=== PATIENT | female | born 1985 | race Two or more races ===

== ENCOUNTER 2024-06-20 19:15 | Emergency (ER) | payer BC, OTHER ==
[~2024-06-20] VITALS: Ht 162.6 cm; Wt 90.0 kg
[2024-06-20] MEDS: LORazepam 0.5 MG TAB PO ONE (19:38)
[2024-06-20 19:45] LABS: Basophils # (auto) 0.1 10 ^3/uL (0-0.2); Basophils % (auto) 1.2 % (0.0-2.0); Eosinophils # (auto) 0.3 10 ^3/uL (0-0.8); Eosinophils % (auto) 2.9 % (0.0-7.0); Hematocrit 37.9 % (36.0-46.0); Hemoglobin 12.9 g/dL (12.2-16.2); Lymphocytes # (auto) 2.7 10 ^3/uL (0.4-5.4); Lymphocytes % (auto) 29.4 % (10.0-50.0); Mean Corpuscular Hgb Conc. 33.9 g/dL (32.0-36.0); Mean Corpuscular Volume 79.6 fL (80.0-100.0); Monocytes # (auto) 0.5 10 ^3/uL (0-1.3); Monocytes % (auto) 5.4 % (0.0-12.0); Neutrophils # (auto) 5.6 10 ^3/uL (1.6-8.6); Neutrophils % (auto) 61.1 % (37.0-80.0); Red Blood Cells 4.77 10^6/uL (4.0-5.20); Red Cell Distribution Width 14.8 % (11.8-14.3); White Blood Cell 9.2 10^3/uL (4.4-10.8)
[2024-06-20 20:00] LABS: Alanine Aminotransferase 20 U/L (7-40); Albumin 4.2 g/dL (3.2-4.8); Alkaline Phosphatase 72 U/L (46-116); Anion Gap 8 (5-15); Aspartate Aminotransferase 9 U/L (13-40); Bilirubin, Total 0.3 mg/dL (0.2-1.0); Blood Urea Nitrogen 13 mg/dL (9-23); Calcium 8.7 mg/dL (8.7-10.4); Carbon Dioxide 24 mmol/L (20-30); Chloride 106 mmol/L (98-107); Glucose 145 mg/dL (74-106); Potassium 3.9 mmol/L (3.5-5.1); Sodium 138 mmol/L (136-145); Total Protein 6.8 g/dL (5.7-8.2)
[2024-06-20 22:55] VITALS: BP 111/78; PULSE 70; RESP 20; TEMP 97.7; O2SAT 97
== END 2024-06-20 22:56 | disposition home or self-care (01) ==
LOC: ER 19:15
DX: R00.2 Palpitations (principal); E05.90 Thyrotoxicosis, unspecified without thyrotoxic crisis or storm
CPT/HCPCS: 36415; 70450; 71045; 80053; 84443; 84484; 85025; 93005

== ENCOUNTER 2025-09-22 19:59 | Emergency (ER) | payer BC ==
[~2025-09-22] VITALS: Ht 162.6 cm; Wt 83.9 kg
--- NOTE | 2025-09-22 20:48 | ED.PDOC ---
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 Patient states that she is currently [id number] and has been having abnormal vaginal bleeding along with suprapubic abdominal pain onset, Sunday (09/18/25). Patient denies any trauma, injury, fall, urinary symptoms, vaginal discharge, or recent sexual intercourse. No other symptoms or modifying factors are present at this time. Chief Complaint: Time Seen by MD: 20:30 Reviewed Notes: Nurses Notes, Medications, Allergies Allergies: Coded Allergies: NO KNOWN ALLERGIES (Unverified , 06/20/24) Information Source: Patient Mode of Arrival: Ambulatory Timing: Days Severity: Moderate Vaginal Discharge: None Vaginal Lesions: None Bleeding Quality: Bright Red Vaginal Mass: None Onset Of Mass/Bleeding: Spontaneous Sexual Activity: Last Consensual Cache: Unknown History of: Current Blood Type: Unknown Symptoms of Possible : None Associated Signs and Symptoms: Vaginal Bleeding, Abdominal Pain Past Medical History PAST MEDICAL HISTORY: Anxiety, Depression, Thyroid Surgical History: Denies all surgeries [employer] ARCHITECT History: Denies all [employer] ARCHITECT Hx Family History Family History: Reviewed,noncontributory to illness Social History Smoker: Non-Smoker Alcohol: Denies ETOH Use Drugs: Denies Drug Use Lives In: Home Constitutional: denies: chills, diaphoresis, fatigue, fever, malaise, sweats, weakness, others EENTM: denies: blurred vision, double vision, ear bleeding, ear discharge, ear drainage, ear pain, ear ringing, eye pain, eye redness, hearing loss, mouth pain, mouth swelling, nasal discharge, nose bleeding, nose congestion, nose pain, photophobia, tearing, throat pain, throat swelling, voice changes, others Respiratory: denies: cough, hemoptysis, orthopnea, SOB at rest, shortness of breath, SOB with excertion, stridor, wheezing, others Cardiovascular: denies: chest pain, dizzy spells, diaphoresis, Dyspnea on exertion, edema, irregular heart beat, left arm pain, lightheadedness, palpitations, PND, syncope, others Gastrointestinal: reports: abdominal pain; denies: abdomen distended, blood streaked bowels, constipated, diarrhea, dysphagia, difficulty swallowing, hematemesis, melena, nausea, poor appetite, poor fluid intake, rectal bleeding, rectal pain, vomiting, others Genitourinary: reports: abnormal vagina bleeding; denies: burning, dyspareunia, dysuria, flank pain, frequency, hematuria, incontinence, pain, , vagina discharge, urgency, others Neurological: denies: dizziness, fainting, headache, left sided numbness, left sided weakness, numbness, paresthesia, pre-existing deficit, right sided numbness, right sided weakness, seizure, speech problems, tingling, tremors, weakness, others Musculoskeletal: denies: back pain, gout, joint pain, joint swelling, muscle pain, muscle stiffness, neck pain, others Integumetry: denies: bruises, change in color, change in hair/nails, dryness, laceration, lesions, lumps, rash, wounds, others Allergic/Immunocompromised: denies: Difficulty Healing, Frequent Infections, Hives, Itching, others Hematologic/Lymphatic: denies: anemia, blood clots, easy bleeding, easy bruising, swollen glands, others Endocrine: denies: excessive hunger, excessive sweating, excessive thirst, excessive urination, flushing, intolerance to cold, intolerance to heat, unexplained weight gain, unexplained weight loss, others Psychiatric: denies: anxiety, bipolar disorder, depression, hopeless, panic disorder, schizophrenia, sleepless, suicidal, others All Other Systems: Reviewed and Negative Physical Exam General Appearance: No Apparent Distress, Normal HEENT: Normal ENT Inspection, Pharynx Normal Neck: Full Range of Motion, Non-Tender, Normal, Normal Inspection Respiratory: Chest Non-Tender, Lungs Clear, No Accessory Muscle Use, No Respiratory Distress, Normal Breath Sounds Cardiovascular: No Edema, No Murmur, No Gallop, Normal Peripheral Pulses, Regular Rate/Rhythm Breast Exam: Deferred Gastrointestinal: No Organomegaly, Non Tender, No Pulsatile Mass, Normal Bowel Sounds, Soft Genitalia: Deferred Pelvic: Deferred Rectal: Deferred Extremities: No calf tenderness, Normal capillary refill, Normal inspection, Normal range of motion, Non-tender, No pedal edema Musculoskeletal : Apperance: Normal Neurologic: Alert, 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 Was a procedure done?: No Differential Diagnosis ([employer]CHITECT) Vaginal Bleeding: - Inevitable, - Missed, - Threatened, PID, Other (subchorionic hemorrhage) X-Ray, Labs, Meds, VS Vital Signs Date Time Temp Pulse Resp B/P (MAP) Pulse Ox O2 Delivery O2 Flow Rate FiO2 09/22/25 20:01 98.1 111 20 158/99 97 98.1 Lab Test 09/22/25 21:38 09/22/25 20:51 Range/Units Urine Color Yellow Yellow Urine Clarity Clear Clear Urine pH 5.0 5.0-9.0 Urine Specific [place] 1.031 1.001-1.035 Urine Protein Trace H Negative Urine Ketones Trace Negative Urine Blood 3+ H Negative /uL Urine Nitrite Negative Negative Urine Bilirubin Negative Negative Urine Urobilinogen Normal Negative mg/dL Urine Leukocyte Esterase 2+ Negative /uL Urine RBC 82 0 - 4 /hpf Urine Microscopic WBC 20 H 0-5 /HPF Urine Squamous Epithelial Cells Few <5 /hpf Urine Bacteria Few H None Seen /hpf Urine Mucus Few None Seen Urine Yeast (Budding) Occasional None Seen /hpf Urine Glucose Normal Normal mg/dL Beta HCG, Quantitative 5124.9 H 1.5-4.2 mIU/mL X-Ray, Labs, Meds, VS Comment Ultrasound shows subchorionic hemorrhage, and heart tones noticed was single intrauterine Advised to follow up in two days for a recheck of beta hCG and ultrasound Fan get hold of PCP/OBGYN next available appointment. Time of 1ST Reevaluation: 21:00 Reevaluation 1ST: Unchanged Patient Education/Counseling: Diagnosis, Treatment, Need For Follow Up (Follow up in two days for recheck) Family Education/Counseling: No Family Present Departure 1 Departure Time of Disposition: 22:53 Impression: Primary Impression: First trimester bleeding Additional Impression: Subchorionic hemorrhage Qualified Codes: O20.8 - Other hemorrhage in early Disposition: HOME / SELF CARE / HOMELESS Condition: Fair Discharged With: Self Critical Care Note Critical Care Time?: No Stability Stability form required: No Heart Score Heart Score: Heart Score Response (Comments) Value History N/A 0 EKG N/A 0 Age N/A 0 Risk Factors N/A 0 Troponin N/A 0 Total 0 I personally scribed for JESUS MANUEL GARNICA (MINA) on 09/22/25 at 20:48. Electronically submitted by Nisha [email or web address]). JESUS MANUEL GARNICA Sep 22, 2025 20:48
[2025-09-22 22:06] LABS: Urine Budding Yeast OCCASIONAL /hpf (None Seen); Urine Protein, UAD TRACE (Negative)
--- NOTE | 2025-09-22 23:00 | DVH ---
OBSTETRIC ULTRASOUND PRIOR TO 14 WEEKS CLINICAL INDICATION: vag bleed TECHNIQUE: Multiple grayscale ultrasound images were obtained of the pelvis via transabdominal and transvaginal approach for obstetric evaluation. Limited color Doppler and spectral Doppler acquisitions were also obtained. COMPARISON: None FINDINGS: Uterus: 8.9 x 5.9 x 5.7 cm. A solid fibroid is seen in the uterine fundus measuring 1.8 cm. There is a single intrauterine gestational sac is visualized. A pole is visualized measuring 0.19 cm . cardiac activity is present with heart rate of 106 beats per minute. A normal yolk sac is present. Right adnexa: right ovary 3.3 x 2.6 x 2.4 cm. Normal arterial blood flow in the ovary. No right adnexal mass seen. Complex cystic lesion in the right ovary measures 1.9 cm. Left adnexa: left ovary 1.6 x 1.0 x 1.4 cm. Normal arterial blood flow in the ovary. No left adnexal mass seen. Other: Small subchorionic hemorrhage measuring 8 mm. IMPRESSION: 1. Single living intrauterine seen. heart tones detected.
[2025-09-22 23:12] VITALS: BP 140/87; PULSE 89; RESP 20; TEMP 98.1; O2SAT 97
== END 2025-09-22 23:32 | disposition home or self-care (01) ==
LOC: ER 19:59
DX: O20.8 Other hemorrhage in early pregnancy (principal); Z3A.01 Less than 8 weeks gestation of pregnancy; R10.20 Pelvic and perineal pain unspecified side
CPT/HCPCS: 36415; 76801; 76817; 81001; 84702